=== PATIENT | male | born 1955 | race Caucasian/White ===

== ENCOUNTER → 2018-03-31 | Outpatient (CLI) | payer MEDICARE, OTHER ==
[~2018-03-31] MED LIST: FENTANYL PF 100 MCG/2ML ONE; OXYcodone 5 MG/5 ML ORAL.SOL UDC ONE
== END | disposition home or self-care (01) ==
LOC: CFH 07:27
PROVIDERS: ATTEND Internal Medicine Cardiovascular Disease
DX: I08.1 Rheumatic disorders of both mitral and tricuspid valves (principal); I48.91 Unspecified atrial fibrillation; R00.0 Tachycardia, unspecified; Z82.49 Family history of ischemic heart disease and other diseases of the circulatory system
CPT/HCPCS: 93306